=== PATIENT | male | born 1960 | race Caucasian/White ===

== ENCOUNTER → 2017-06-27 | Outpatient (CLI) | payer BC ==
[~2017-06-27] MED LIST: ASPI-1441 PO; CEP500 PO; CLO75 PO; CYCL10TA29 PO; DICL-195 PO; HYDR-6015 PO; LOR5/325 PO; MET50 PO; NIT4 SL; OMEP-125 PO; PENI-24 PO; ROS10 PO
== END ==
LOC: LAB 08:33
PROVIDERS: ATTEND Nurse Practitioner
DX: C44.319 Basal cell carcinoma of skin of other parts of face (principal)
CPT/HCPCS: 88305

== ENCOUNTER → 2017-10-10 | Outpatient (CLI) | payer BC ==
[~2017-10-10] MED LIST changes: +ATEN-1 PO; +NITR0.4T3 SL
--- NOTE | 2017-10-10 12:17 | RADIOLOGY IMAGING REPORT ---
[place] [facility] [place] NAME: Roe Dennis : 1960 MR: [id number] V: [id number] EXAM DATE: ORDERING PHYSICIAN: KRISTA VAZQUEZ TECHNOLOGIST: Location: [facility] [place] Patient: Roe Dennis : 1960 Visit/Account:[id number] Date of Sevice: 10/10/2017 EXAMINATION: CT of the Paranasal Sinuses HISTORY: Polyposis TECHNIQUE: CT was performed through the paranasal sinuses without intravenous contrast administratio n. Coronal and sagittal reformatted images were generated. One of the following dose optimization techniques was utilized in the performance of this exam: autom ated exposure control; adjustment of the mA and/or kV according to patient size; or use of iterative reconstruction technique. Specific details can be referenced in the facility's radiology CT exam ope rational policy. COMPARISON: None. FINDINGS: The mastoid air cells and middle ear cavities are patent. 8mm mucous retention cyst versus polyp in t he medial upper left maxillary sinus, coronal image 40. Mucous retention cyst versus polyp in the rig ht upper maxillary sinus measuring 11 mm. Small volume layering fluid in the right maxillary sinus. Bilateral frontoethmoidal recess mucosal thickening. Right greater than left ethmoid air cell opacifi cation. Near complete opacification of the sphenoid sinus. Chronic thickening and sclerosis of the sp henoid sinus moreno. Rightward anterior nasal septum deviation measures 3 mm. The infundibula are opacified. Thinning versus absence of a portion of the medial bilateral maxillary sinus moreno, coronal image 45. Nasal polyps filled the nasal cavity which are not well characterized by CT. The visible extracranial and intracranial structures are normal. IMPRESSION: 1. Multiple nasal cavity polyps not well characterized by CT, correlate with direct visualization. 2. 8mm left and 11 mm right upper maxillary sinus mucous retention cysts versus polyps. 3. Cortical thinning versus potential cortical absence of portions of the bilateral medial maxillary sinus moreno. 4. Small volume right maxillary sinus secretions. 5. Ethmoid sinus and sphenoid sinus opacification. Report Dictated By: Eddie Smart MD at 10/10/2017 12:07 PM Report E-Signed By: Eddie Smart MD at 10/10/2017 12:13 PM WSN:[email or web address]
== END ==
LOC: CT 07:14
PROVIDERS: ATTEND Otolaryngology
DX: J33.0 Polyp of nasal cavity (principal); J34.2 Deviated nasal septum
CPT/HCPCS: 70486

== ENCOUNTER 2017-11-25 02:00 | Day surgery (SDC) | payer SELFPAY ==
[~2017-11-25] VITALS: Ht 170.2 cm; Wt 91.6 kg
[~2017-11-25 02:00] MED LIST changes: +ROSU20TA23 PO
[2017-11-25] MEDS ORDERED: OXYMETAZOLINE SPRAY 15 ML BTL ONE ×2 (10:13→12:33)
[2017-11-25] MEDS ORDERED: BACITRACIN OINT 15 GM TUBE TP ONE (10:13)
[2017-11-25] MEDS ORDERED: MUPIROCIN 2% OINT 22 GM TUBE TP ONE (10:13)
[2017-11-25] MEDS ORDERED: LIDO/EPI 1% MDV 1:100,000 20ML INFIL ONE (10:13)
[2017-11-25 11:09] LABS: PLATELET COUNT, AUTOMATED 278 K/uL (150-450)
[2017-11-25] MEDS ORDERED: NORMOSOL R SOLN(*) 1000 ML BAG 1,000 ML IV PRN (11:20)
[2017-11-25] MEDS ORDERED: MIDAZOLAM 2 MG/2 ML VIAL IVP PRN (11:20)
[2017-11-25] MEDS ORDERED: LIDOCAINE/SOD BICARB 8.4% SYR ID ONE (11:20)
[2017-11-25] MEDS ORDERED: FAMOTIDINE 20 MG TAB PO ONE (11:20)
[2017-11-25] MEDS ORDERED: ceFAZolin(*) 2GM/D5W 50ML 50 ML IVPB ONE (11:20)
[2017-11-25 11:48] VITALS: BP 137/82
[2017-11-25] MEDS ORDERED: PROPOFOL EMUL(*) 10MG/ML 20 ML 40 ML ONE (12:34)
[2017-11-25] MEDS ORDERED: DEXAMETHASONE SOD PHOS 10MG/ML ONE (12:34)
[2017-11-25] MEDS ORDERED: ONDANSETRON 4 MG/2 ML VIAL ONE ×2 (12:34→14:32)
[2017-11-25] MEDS ORDERED: fentaNYL CITR 100 MCG/2 ML AMP ONE ×2 (12:43→14:17)
[2017-11-25] MEDS ORDERED: TRAM-627 PO (14:46)
[2017-11-25] MEDS ORDERED: CEFU500T10 PO (14:48)
[2017-11-25] MEDS ORDERED: ACETAMINOPHEN(*)1000 MG/100 ML 100 ML IVPB ONE (14:58)
[2017-11-25] MEDS ORDERED: traMADol 50 MG TAB ONE (15:32)
[2017-11-25 16:00] VITALS: BP 126/73
[2017-11-25 16:15] VITALS: BP 113/70
[2017-11-25 16:30] VITALS: BP 123/67
[2017-11-25 16:38] VITALS: BP 126/42
[2017-11-25 16:41] VITALS: BP 111/78
--- NOTE | 2017-11-26 04:06 | OPERATIVE REPORT 1 ---
EVENT DATE: November 25, 2017 SURGEON: Dallin Christianson MD ANESTHESIOLOGIST: Addison Sexton MD ANESTHESIA: LMA PROCEDURE 1. Septoplasty. 2. Bilateral frontal sinusotomy, total ethmoidectomy, sphenoidectomy and maxillary antrostomies. 3. Bilateral nasal polypectomies. PREOPERATIVE DIAGNOSES 1. Nasal septal deviation. 2. Nasal polyposis. 3. Bilateral chronic frontal, ethmoid, sphenoid and maxillary sinusitis. POSTOPERATIVE DIAGNOSES 1. Nasal septal deviation. 2. Nasal polyposis. 3. Bilateral chronic frontal, ethmoid, sphenoid and maxillary sinusitis. INDICATIONS Please refer to the preoperative note. DESCRIPTION OF PROCEDURE The patient was positively identified in the preoperative area. He was accompanied there by his . Risks were again explained, including but not limited to bleeding, infection, recurrent polyposis, injury to the eye, vision changes, cerebrospinal fluid leak, and those associated with anesthesia. He acknowledged understanding of those risks. I again reviewed the patient's preoperative CT scan. This was notable for a rightward septal deviation and opacification of the nasal cavities and sinuses. Patient was then brought back to the operative suite, laid supine on the operative table and anesthesia was administered. Once asleep, the patient was positioned, then prepped and draped in usual sterile fashion. Both nasal cavities were initially decongested with cottonoids containing Afrin solution. These were subsequently removed. A bilateral nasal endoscopy was performed. This was notable for severe rightward nasal septal deviation and bilateral nasal polyposis. I began on the left side. A automobile rental representative specimen from the nasal polyp was removed and sent for permanent pathology. A nasal polypectomy was then performed with a microdebrider blade. The natural maxillary ostium was identified. This was widened with the microdebrider blade and backbiting forceps. A total ethmoidectomy and sphenoidectomy were then performed. The frontal sinus was then addressed with a balloon sinuplasty system. I then proceeded with the contralateral side. unfortunately, I was unable to perform his sinus surgery with his septal deviation. Therefore, septoplasty was indicated. A Ryan incision was made in the left anterior nasal septal mucosa. A subperichondrial flap was elevated. An incision was then made into the anterior nasal septal cartilage approximately 5 mm posterior to the original Ryan incision. A contralateral flap was raised. The deviated portion of the patient's nasal septal cartilage and bone were then removed. The Ryan incision was then reapproximated with interrupted chromic stitch. I then proceeded with the sinus surgery on the right side. A automobile rental representative specimen from the right nasal polyposis was obtained and sent for permanent pathology. A nasal polypectomy was then performed with a microdebrider blade. The natural maxillary ostium was identified. This was widened with backbiting forceps and the microdebrider blade. A total ethmoidectomy and sphenoidectomy were then performed. The frontal sinus was addressed with a balloon sinuplasty system. Bilateral nasal septal splints were then placed and secured to the columella with a suture. The patient was then turned to Anesthesia for emergence. ESTIMATED BLOOD LOSS 100 mL. COMPLICATIONS No complications.] ONEL
== END 2017-11-25 15:45 | disposition home or self-care (01) ==
LOC: OR 02:00
PROVIDERS: ATTEND Otolaryngology
DX: J34.2 Deviated nasal septum (principal); J33.9 Nasal polyp, unspecified; J32.0 Chronic maxillary sinusitis; J32.1 Chronic frontal sinusitis; J32.2 Chronic ethmoidal sinusitis; J32.3 Chronic sphenoidal sinusitis
CPT/HCPCS: 30520; 31090; 31237; 36415; 85025; 88305; J0131; J1100; J2405; J2704; J3010; C1726; C1769; C1887; J0690

== ENCOUNTER → 2018-06-27 | Outpatient (CLI) | payer SELFPAY ==
[~2018-06-27] MED LIST changes: +BUDE0.5A6 IH; +CEFU500T10 PO; +TRAM-627 PO
--- NOTE | 2018-06-27 13:42 | RADIOLOGY IMAGING REPORT ---
FACILITY: [facility] - [place] PATIENT NAME: Roe Dennis : 1960 MR: [id number] V: [id number] EXAM DATE: ORDERING PHYSICIAN: NATACHA CARTER [place]CHN[place] [facility] [place]oe [place] : 1960 Visit/Account:[id number] Date of Sevice: 06/27/2018 Exam type: CHEST PA LAT History: Cough Comparison: July 22, 2015. Findings: The lungs are free of acute effusions, infiltrates or edema. Cardiac silhouette is normal in size. The trachea is midline. There are moderate spondylotic changes of the thoracic spine. IMPRESSION: 1. No acute cardiac pulmonary process is seen Report Dictated By: Melisa Carias MD at 06/27/2018 1:37 PM Report E-Signed By: Melisa Carias MD at 06/27/2018 1:39 PM WSN:[email or web address]
== END ==
LOC: RAD 11:25
PROVIDERS: ATTEND Nurse Practitioner Family
DX: R05 Cough (principal); R06.02 Shortness of breath
CPT/HCPCS: 71046